=== PATIENT | male | born 1955 | race Caucasian/White ===

== ENCOUNTER → 2020-04-14 11:15 | Outpatient (CLI) | payer MEDICARE ==
[2020-02-14 16:49] VITALS: BMI 28.0
[~2020-04-14 11:15] MED LIST: ALDACTONE25 MG PO; AMIODARONE HCL200 MG PO; BAYER CHEWABLE81 MG PO; COZAAR50 MG; COZAAR50 MG PO; FISH OIL 1,0001 CA1 PO; FLUTICASONE PRO16 GM NASAL; FUROSEMIDE20 MG PO; LASIX20 MG PO; LOPRESSOR25 MG PO; LOSARTAN-HCTZ1 EAC1 PO; MUCINEX DM ER1 EAC1 PO; MULTI-DAY VITAM1 TAB PO; PLAVIX75 MG PO; SYMBICORT 16010.2 GM INH; TESSALON PERLE100 MG PO
--- NOTE | 2020-04-17 10:15 | EC ---
PATIENT:REECE WILHELM DATE OF SERVICE: 04/14/20 SEX: M MEDICAL RECORD: [id number] DATE OF : 51 LOCATION:[facility] AGE OF PATIENT: 64 ADMISSION DATE: 04/14/20 REFERRING PHYSICIAN: INTERPRETING PHYSICIAN: BONNIE JOHNSON MD ECHOCARDIOGRAM REPORT ECHO CHARGES 4 ECHO COMPLETE Date: 04/14/20 CLINICAL DIAGNOSIS: HX OF CARDIOMYOPATHY/CAD ASSESS EF/MR/TR ECHOCARDIOGRAPHIC MEASUREMENTS (adult normal given) AC root (d.<3.7cm) 3.5 cm LV Septum d (<1.2 cm> 1.3 cm Valve Excursion 0.9 cm LV Septum (systole) 1.7 cm Left Atria (s.<4.0cm> 4.4 cm LVPW d(<1.2cm) 1.4 cm RV (d.<2.3cm) 4.3 cm LVPW (sytole) 1.6 cm LV diastole(<5.6CM) 6.2 cm MV E-F(>70mm/sec) cm LV systole 4.6 cm LVOT Diameter 1.6 cm MV exc.(>10mm) 1.7 cm Est.ejection fraction (50-75%) % DOPPLER: LVIT cm/sec A 33.0 cm/sec E 130.0 cm/sec LA cm/sec RVSP 67 mmHg LVOT 158 cm/sec AOP1/2T m/s Asc. Ao 257 cm/sec RVOT 59 cm/sec RA cm/sec PA 89 cm/sec AV Gradient Peak 26.32mmHg AV Mean 15.24mmHg AV Area 1.3 cm MV Gradient Peak 11.89mmHg MV Mean 2.64 mmHg MV Area cm COMMENTS: Millinery Worker: 2 HOLLIE GUZMAN Rod Mill Tender: 3 Dr. Collazo TAPE# PACS Pericardial Effusion N DATE OF SERVICE: Adequate 2D, color flow imaging, spectral Doppler, and M-Mode. Mild LVH. LV internal dimensions are normal. LV is mildly globally hypo with EF lower limits of normal to mildly reduced 45-50%. Aortic valve calcified with restriction of leaflet motion. Peak gradient of 26 mmHg putting this in mild range. Mild AI by color flow imaging. Left atrium is mildly dilated at 4.4 cm. Mitral valve shows no prolapse. Moderate MR. Right-sided chambers are grossly normal. Moderate TR. ECHOCARDIOGRAM REPORT [id number] REECE WILHELM TRANSINT:[id number] Voice Confirmation ID: [id number] DOCUMENT ID: [id number] BONNIE JOHNSON MD at 1015 CC: [id number] DICTATION DATE: 04/14/20 1250 CERTIFIED MEDICAL AIDE: 04/14/201915 DEP CLI 04/14/20 [place] [address] [place] [id number]
== END | disposition home or self-care (01) ==
LOC: D.HCCECHO 11:15
PROVIDERS: ATTEND Internal Medicine Interventional Cardiology
DX: I10 Essential (primary) hypertension (principal)

== ENCOUNTER 2020-06-08 12:00 | Day surgery (SDC) | payer MEDICARE ==
[~2020-06-08] VITALS: Ht 177.8 cm; Wt 92.3 kg
--- NOTE | ~2020-06-08 | HEMODYNAMI ---
PATIENT:REECE WILHELM MEDICAL RECORD: [id number] : 51 LOCATION:[facility] ADMISSION DATE: 06/08/20 Generatedon:114:05 Patient name: REECE WILHELM Patient #: [id number] : 1955 Date of study: 06/08/2020 Page: Of Hemodynamic Procedure Report Patient Data Patient Demographics Procedure consent was obtained First Name: REECE Gender: Male Last Name: CHOCO : 1955 Patient #: [id number] Age: 64 year(s) Race: SSN: [id number] Additional ID: [id number] Contact details [address]: [address] [place] [address] State: [place] City: [place] Zip code: [address] Past Medical History History of disease Date Diagnosis Comments CAD Allergies: No known allergies Admission Admission Data Admission Date: 06/08/2020 Admission Time: 12:00 Arrival Date: 06/08/2020 Arrival Time: 14:00 Admit Source: Other Insurance Payor: Medicare [facility] #: [id number] Height (in.): 69.69 BSA: 2.09 (m2) Height (cm.): 177 BMI: 29.37 (kg/m2) Weight (lbs.): 202.83 Weight (kg.): 92 Lab Results Lab Result Date: 06/08/2020 Lab Result Time: 0:00 Biochemistry Name Units Result Min Max BUN mg/dl 23 --(----)-* 7 18 Creatinine mg/dl 1.4 --(----)*- 0.6 1.3 eGFR ml/min 54 *-(----)-- 90 120 NONAFRICAN CBC Name Units Result Min Max Hemoglobin g/dl 16.1 --(--*-)-- 13.5 17.5 Procedure Procedure Types Cath Procedure Diagnostic Procedure LHC LHC w/Coronaries Sedation Charges Moderate Sedation 10-24 minutes Procedure Description Procedure Date Procedure Date: 06/08/2020 Procedure Start Time: 13:43 Procedure End Time: 14:00 Procedure Staff Name Function Tom Acharya MD Performing Physician Marry Prabhakar RT Monitor Grecia Bradford RT Scrub Mitul Walton RN Nurse Basim Rose RN Nurse Procedure Data Cath Procedure Fluoroscopy Diagnostic fluoroscopy Total fluoroscopy Time: 3.1 time: 3.1 min min Diagnostic fluoroscopy Total fluoroscopy dose: 816 dose: 816 mGy mGy Contrast Material Contrast Material Type Amount (ml) Isovue 300 91 Entry Location Entry Primary Successful Side Size Upsize Upsize Entry Closure Succes sful Closure Location (Fr) 1 (Fr) 2 (Fr) Remarks Device Remarks Femoral Right 5 Fr Exoseal artery Estimated blood loss: 5 ml Diagnostic catheters Device Type Used For End Catheter Placement MULTIPACK JL 4.0 5Fr Left Coronary catheter Angiography DIAGNOSTIC JL 5 5Fr Left Coronary catheter ([id number]) Angiography MULTIPACK 3DRC 5Fr Right Coronary catheter Angiography MULTIPACK Pigtail 5 Fr LV Angiography catheter Procedure Complications No complications Procedure Medications Medication Administration Route Dosage 0.9% NaCl I.V. 100 ml/hr Heparin Flush Bag added to field 2 bags (1000units/500ml NS) Oxygen etCO2 Nasal cannula 2 l/min Lidocaine 2% added to field 20 Fentanyl I.V. 50 mcg Versed I.V. 1 mg Fentanyl I.V. 50 mcg Versed I.V. 1 mg Versed I.V. 1 mg Lasix I.V. 40 mg Hemodynamics Rest BSA: 2.09 (m2) HGB: 16.1 (g/dl) O2 Consumption: Estimated: 241.64 (ml/min) O2 Co nsumption indexed: Estimated:115.62 (ml/min/m) Heart Rate: 68 (bpm) Pressure Samples Time Site Value (mmHg) Purpose Heart Use Rate(bpm) 13:53 LV 103/60,63 Snapshot 81 13:53 LV 101/25,29 Snapshot 109 Gradients Valve Time Site Site Mean SEP/DFP Peak To Heart Use 1 2 (mmHg) (sec/min) Peak Rate (mmHg) (bpm) Aortic 13:54 LV AO 81 Snapshots Pre Cath Intra NCS Post Cath Vital Signs Time Heart Resp SPO2 etCO2 NIBP (mmHg) Rhythm Pain Sedation Rate (ipm) (%) (mmHg) Status Level (bpm) 13:22:24 59 24 96 23.9 122/81(105) NSR 0 (11) 10(A) , No pain 13:26:40 66 23 97 0 111/80(102) NSR 0 (11) 10(A) , No pain 13:30:51 60 23 91 0 134/119(125) NSR 0 (11) 10(A) , No pain 13:39:13 70 20 98 16.4 114/70(98) NSR 0 (11) 9(A) , No pain 13:43:29 67 16 94 0 105/64(92) NSR 0 (11) 9(A) , No pain 13:47:33 70 17 91 29.2 101/80(95) NSR 0 (11) 9(A) , No pain 13:51:45 64 17 92 26.2 106/66(90) NSR 0 (11) 9(A) , No pain 13:55:55 71 17 91 27.7 104/78(95) NSR 0 (11) 9(A) , No pain 14:00:03 68 17 92 28.4 93/69(85) NSR 0 (11) 9(A) , No pain Medications Time Medication Route Dose Verified Delivered Reason Notes Eff ectiveness by by 13:24:54 0.9% NaCl I.V. 100 Tom Basim used for ml/hr [facility] Ritchie Rose laundry worker 13:25:04 Heparin Flush added 2 Tom Tom used for Bag to bags [facility] procedure (1000units/500ml field MD HERNANDEZ NS) 13:25:16 Oxygen etCO2 2 Tom Basim used for Nasal l/min [facility] Ritchie Rose laundry worker cannula 13:25:31 Lidocaine 2% added 20ml Tom Tom for local to vial [facility] anesthetic field MD HERNANDEZ 13:33:36 Fentanyl I.V. 50 Tom Basim for mcg [facility] Ritchie Rose RN sedation 13:33:46 Versed I.V. 1 mg [address]im for [facility] Ritchie Rose RN sedation 13:40:22 Fentanyl I.V. 50 Tom Basim for mcg [facility] Ritchie Rose RN sedation 13:40:29 Versed I.V. 1 mg [address]im for [facility] Ritchie Rose RN sedation 13:53:33 Versed I.V. 1 mg [address] for [facility] Ritchie Rose RN sedation 13:59:14 Lasix I.V. 40 mg Tom Caball[address]oy Per [facility] Ritchie Rose RN physician Procedure Log Time Note 12:42:45 Informed consent obtained and on chart 12:44:08 Admit Source: Other 12:44:13 Arrival Date: 06/08/2020 2:00:00 PM 12:45:08 Insurance Payor : Medicare 12:51:21 Patient Height : 69.69 inches 12:51:25 Patient Weight : 202.83 lbs 12:51:48 Diagnostic Cath Status : Elective 13:01:06 Lab Result : BUN 23 mg/dl 13:01:06 Lab Result : Hemoglobin 16.1 g/dl 13:01:06 Lab Result : eGFR NONAFRICAN 54 ml/min 13:01:06 Lab Result : Creatinine 1.4 mg/dl 13:01:23 Procedure Status Elective Heart Cath (OP). 13:01:26 Mitul Walton RN sent for patient. Start room use. 13:01:27 Time tracking: Regular hours (M-F 7:00 - 5:00) 13:01:33 Plan of Care:Hemodynamics will remain stable., Cardiac rhythm will remain stable., Comfort level will be maintained., Respiratory function will remain adequate., Patient/ family verbilizes understanding of procedure., Procedure tolerated without complication., Recovers from procedure without complications.. 13:21:14 Patient received from Pre/Post Procedure Room to CCL 1 Alert and oriented. Tansferred to table in Supine position. 13:21:15 Warm blankets applied, and torri hugger turned on for patient comfort. 13:21:16 Correct patient and procedure confirmed by team. 13:21:16 ECG and BP/O2 sat monitors applied to patient. 13:21:17 Baseline sample Acquired. 13:21:17 Vital chart was started 13:21:21 Rhythm: sinus rhythm 13:21:24 Full Disclosure recording started 13:21:31 H&P Date Dictated: 06/08/2020 Within 30 days and on chart., H&P Addendum completed by physician on day of procedure. (MUST COMPLETE FOR ALL OUTPATIENTS). 13:21:33 Pre-procedure instructions explained to patient. 13:21:34 Pre-op teaching completed and patient verbalized understanding. 13:21:45 Family in patients room. 13:21:47 Patient NPO since Midnight. 13:21:50 Is the patient allergic to Iodine/contrast media? No. 13:21:51 Was the patient premedicated? Yes 13:21:52 Is patient on blood thinner?Yes 13:21:55 ACC The patient was administered the following blood thiners within the last 24 hours: ACCPlavix 13:21:59 Patient diabetic? No. 13:22:02 Previous problem with sedation/anesthesia? No ? 13:22:04 Snore? Yes 13:22:05 Sleep apnea? No 13:22:06 Deviated septum? No 13:22:06 Opens mouth fully? Yes 13:22:09 Sticks out tongue? Yes 13:22:14 Airway obstruction? No ? 13:22:18 Dentures? No ? 13:22:22 Pre procedure: right dorsailis pedis pulse 2+ Normal; easily identifiable; not easily obliterated 13:22:24 Pre procedure: left dorsailis pedis pulse 2+ Normal; easily identifiable; not easily obliterated 13:22:27 Patient pain scale 0/10 ?. 13:22:36 IV patent on arrival in left forearm with 0.9% NaCl at [facility]. 13:22:39 Lab results completed and on chart. 13:22:46 Right groin area was prepped with chlora-prep and draped in sterile fashion 13:22:47 Alarms reviewed by R. N. 13:22:47 Sharps counted by scrub and verified by R.N. 13:24:54 0.9% NaCl 100 ml/hr I.V. was administered by Basim Rose RN; used for procedure; Verbal order read back and verified. 13:25:04 Heparin Flush Bag (1000units/500ml NS) 2 bags added to field was administered by Tom Acharya MD; used for procedure; Verbal order read back and verified. 13:25:16 Oxygen 2 l/min etCO2 Nasal cannula was administered by Basim Rose RN; used for procedure; Verbal order read back and verified. 13:25:31 Lidocaine 2% 20ml vial added to field was administered by Tom Acharya MD; for local anesthetic; Verbal order read back and verified. 13:25:44 3a) 45-59 Moderately reduced kidney function. 13:33:21 Physician arrived 13:33:22 --------ALL STOP TIME OUT------ 13:33:22 Final Timeout: patient, procedure, and site verified with staff and physician. All members of the team are in agreement. 13:33:24 Right groin site verified by team. 13:33:27 Fire Safety Assessment: A--An alcohol-based skin anteseptic being used preoperatively., C--Open oxygen or nitrous oxide is being used., D--An ESU, laser, or fiber-optic light is being used. 13:33:32 Physical assessment completed. ASA score P 2 - A patient with mild systemic disease as per Tom Acharya MD. 13:33:36 Fentanyl 50 mcg I.V. was administered by Basim Rose RN; for sedation; Verbal order read back and verified. 13:33:36 Maximum allowable contrast dose (3.7 X eGFR X 0.75)150 ml. 13:33:41 Sedation plan: IV Moderate Sedation Medication:Versed, Fentanyl 13:33:46 Versed 1 mg I.V. was administered by Basim Rose RN; for sedation; Verbal order read back and verified. 13:33:46 Use device set Femoral Dx 13:33:47 ACIST Syringe (87109) opened to sterile field. 13:33:47 Bag Decanter (2002S) opened to sterile field. 13:33:47 Medline Cath Pack ([id number]) opened to sterile field. 13:33:48 ACIST Hand Control (54696) opened to sterile field. 13:33:49 ACIST Manifold (35270) opened to sterile field. 13:33:49 DIAGNOSTIC Multipack 5Fr catheter set (QK0629) opened to sterile field. 13:33:50 Tegaderm 4 x 4 (1626W) opened to sterile field. 13:33:51 SHEATH 5FR Leivasy (DPT783) opened to sterile field. 13:33:52 EMERALD Guide Wire (340-847) opened to sterile field. 13:40:22 Fentanyl 50 mcg I.V. was administered by Basim Rose RN; for sedation; Verbal order read back and verified. 13:40:29 Versed 1 mg I.V. was administered by Basim Rose RN; for sedation; Verbal order read back and verified. 13:43:46 Procedure started. 13:43:50 Local anesthetic to right femoral artery with Lidocaine 2% by Tom Acharya MD.INITIAL ACCESS ONLY 13:43:59 A 5 Fr sheath was inserted into the Right Femoral artery 13:44:43 A MULTIPACK JL 4.0 5Fr catheter was advanced over the wire and used for Left Coronary Angiography. 13:45:40 LCA angiography performed. 13:45:43 Injector settings: Ml/sec: 3, Volume: 6, 13:47:22 Catheter removed. 13:47:38 A DIAGNOSTIC JL 5 5Fr catheter ([id number]) was advanced over the wire and used for Left Coronary Angiography. 13:47:41 LCA angiography performed. 13:47:44 Injector settings: Ml/sec: 3, Volume: 6, 13:50:30 Catheter removed. 13:51:10 A MULTIPACK 3DRC 5Fr catheter was advanced over the wire and used for Right Coronary Angiography. 13:52:07 RCA angiography performed. 13:52:18 Injector settings: Ml/sec: 3, Volume: 6, 13:52:31 Catheter removed. 13:52:36 A MULTIPACK Pigtail 5 Fr catheter was advanced over the wire and used for LV Angiography. 13:53:33 Versed 1 mg I.V. was administered by Basim Rose RN; for sedation; Verbal order read back and verified. 13:54:25 LV hemodynamics recorded. 13:54:26 LV gram done using GUPTA 13:54:28 Injector settings: Ml/sec: 5, Volume: 15, 13:54:42 EF : 15 % 13:55:11 Catheter removed. 13:56:40 EXOSEAL 5Fr (EX500) opened to sterile field. 13:57:21 Sheath removed intact; hemostasis achieved with Exoseal to the Right Femoral artery. 13:57:23 Procedure ended.(Physican Out) 13:57:41 Fluoroscopy time 03.10 minutes. 13:57:45 Flurop Dose total: 816 13:57:45 Fluoroscopy dose: 816 mGy 13:57:52 Dose Area Product 31410 mGy/cm. 13:57:56 Contrast amount:Isovue 300 91ml. 13:57:58 Maximum allowable dose exceeded? No. 13:57:59 Sharps counted by scrub and verified by R.N. 13:58:42 Insertion/operative site no bleeding no hematoma. 13:58:46 Post-op/insertion site Right Femoral artery dressed using a 4 x 4 and Tegaderm. 13:58:47 Post Procedure Pulses reassessed and unchanged 13:58:50 Post procedure rhythm: unchanged. 13:58:58 Estimated blood loss: 5 ml 13:59:00 Post procedure instruction explained to patient.Patient verbalizes understanding. 13:59:00 Patient needs reinforcement of post procedure teaching. 13:59:14 Lasix 40 mg I.V. was administered by Basim Rose RN; Per physician; Verbal order read back and verified. 13:59:36 Procedure type changed to Cath procedure, Diagnostic procedure, LHC, [facility] w/Coronaries, Sedation Charges, Moderate Sedation 10-24 minutes 13:59:37 Procedure and supply charges have been captured, reviewed, submitted and are correct. 13:59:55 Procedure Complication : No complications 13:59:57 Vital chart was stopped 14:00:02 [facility] Findings: MVD- MD will discuss options w/ pt 14:00:04 Operative report dictated upon procedure completion. 14:00:05 See physician's report for complete and final results. 14:00:07 Report given to Pre/Post Procedure Room. 14:00:10 Patient transfered to Pre/Post Procedure Room with Stretcher. 14:00:12 Procedure ended. 14:00:12 Full Disclosure recording stopped 14:00:16 End room use (Document Last) 14:02:29 End room use (Document Last) 14:02:45 End room use (Document Last) Device Usage Item Name Manufacture Quantity Catalog Hospital Part Current Minimal L ot# / Number Charge Number Stock Stock Serial# Code ACIST Acist 1 76796 563700 556620 716083 20 Syringe Medical (49629) Systems Inc Bag Microtek 1 592949 81635 349484 5 Decanter Medical Inc. () Medline Medline 1 [id number] 263726 65127 926402 5 Cath Pack ([id number]) ACIST Hand Acist 1 52127 205298 558291 759534 5 Control Medical (98903) Systems Inc ACIST Acist 1 18856 534847 073670 791311 5 Manifold Medical (33631) Systems Inc DIAGNOSTIC Cardinal 1 RO8826 943178 84673 864236 30 Multipack iCrumz 5Fr catheter set (LM2877) Tegaderm 4 3M 1 1626W 878946 416381 585957 5 x 4 (1626W) SHEATH 5FR Terumo 1 ZTQ600 784549 815050 871989 5 Leivasy (EOF498) EMERALD Cardinal 1 502-455 478900 153320 036047 5 Guide Wire Health (502-393) MULTIPACK Cardinal 1 606299 5 JL 4.0 5Fr Health catheter DIAGNOSTIC Cardinal 1 [id number] 934487 121663 612686 5 JL 5 5Fr Health catheter (925699O) MULTIPACK Cardinal 1 068739 5 3DRC 5Fr Health catheter MULTIPACK Cardinal 1 285376 5 Pigtail 5 Health Fr catheter EXOSEAL 5Fr Cardinal 1 EX500 165426 117331 120704 10 (EX500) Health Signature Audit [place] Stage Time Signature Unsigned Intra-Procedure 06/08/2020 Marry Prabhakar 2:02:29 PM RT(R) Intra-Procedure 06/08/2020 Mitul Walton RN 2:02:45 PM Intra-Procedure 06/08/2020 Tom Aragon 2:05:52 PM Ritchie HERNANDEZ [facility] [address] [place] [address]
[2020-06-08] MEDS ORDERED: REPATHA SY140 MG/1 M SC (12:17)
[2020-06-08] MEDS ORDERED: NEXLETOL180 MG PO (12:17)
[2020-06-08] MEDS ORDERED: SYNTHROID50 MCG PO (12:17)
[2020-06-08 12:35] VITALS: BP 119/87; Ht 177.8 cm; Wt 92.3 kg
[2020-06-08 12:49] LABS: BASOPHILS 0.1 % (0-2); EOSINOPHILS 0.4 % (0-7); HEMATOCRIT 48.3 % (42.0-54.0); HEMOGLOBIN 16.1 g/dL (13.5-17.5); IMMATURE GRANULOCYTES 0.1 % (0-5); LYMPHOCYTE ABS# 1.93 10x3/uL (1.32-3.57); LYMPHOCYTES 24.3 % (15-50); MCH 28.6 pg (26.0-34.0); MCHC 33.3 g/dL (31.0-37.0); MCV 85.8 fL (80.0-100.0); MEAN PLATELET VOLUME 11.4 fL (7.4-10.4); NEUTROPHIL ABS# 5.24 10x3/uL (1.78-5.38); NEUTROPHILS 66.1 % (40-80); PLATELET COUNT 236 10x3/uL (130-400); RBC 5.63 10x6/uL (4.20-6.10); RDW 16.8 % (11.5-14.5); WBC 7.9 10x3/uL (4.8-10.8)
[2020-06-08 12:55] LABS: ANION GAP 12.7 mmol/L (8-16); CALCIUM 9.4 mg/dL (8.5-10.1); CARBON DIOXIDE 24.7 mmol/L (21.0-32.0); CHOL - HDL RATIO 1.7 ratio (2.3-4.9); CREATININE - SERUM 1.4 mg/dL (0.6-1.3); LDL-HDL RATIO 0.3 ratio (1.5-3.5); POTASSIUM - SERUM 4.4 mmol/L (3.5-5.1)
--- NOTE | 2020-06-08 14:15 | NUR ---
PT ARRIVED BY STRETCHER. PLACED ON MONITORS. ASSESSMENT COMPLETED. PT'S SON AT BEDSIDE. DR. JOHNSON ROUNDED AND SPOKE WITH HIM REGARDING PLAN OF CARE. PT VERY SLEEPY. DOES AROUSE WITH STIMULI. LUNGS ARE CLEAR TO AUSCULTATION. PT IS SNORING LOUDLY WITH APNIC EPISODES OF 10-15 SECONDS. DOES WAKE HIMSELF AND THEN FALL BACK TO SLEEP. CALL LIGHT WITHIN REACH.
[2020-06-08] MEDS ORDERED: ENTRESTO 24 MG1 EACH PO (14:23)
--- NOTE | 2020-06-08 14:30 | NUR ---
PT RESTING COMFORTABLY. RIGHT GROIN DRESSING C/D/I. NO S/S OF HEMATOMA NOTED. CALL LIGHT WITHIN REACH. FAMILY AT BEDSIDE.
--- NOTE | 2020-06-08 15:00 | NUR ---
RIGHT GROIN DRESSING C/D/I. NO S/S OF HEMATOMA NOTED. RIGHT PEDAL PULSE PALPABLE. VSS AT THIS TIME. PT STILL SLEEPY. DOES AROUSE TO VOICE. HEAD OF BED INC TO 30 DEGREES. TOLERATED WELL. PT TOLERATED SIPS OF WATER. DENIES NAUSEA/PAIN. CALL LIGHT WITHIN REACH. FAMILY AT BEDSIDE. PT'S DAUGHTER RAFAELA CALLED AND GAVE ME THE PASS CODE. UPDATED HER ON PT'S STATUS AND PLAN OF CARE.
--- NOTE | 2020-06-08 15:30 | NUR ---
RIGHT GROIN DRESSING C/D/I. NO S/S OF HEMATOMA NOTED. PT RESTING COMFORTABLY. VSS AT THIS TIME. CALL LIGHT WITHIN REACH. FAMILY AT BEDSIDE.
--- NOTE | 2020-06-08 15:50 | NUR ---
PT MORE AWAKE AND ALERT. PT'S O2 SAT 94% ON ROOM AIR. SET UP WITH SANDWICH TRAY AND DRINK. DENIES NAUSEA. RIGHT GROIN DRESSING C/D/I. NO S/S OF HEMATOMA NOTED. RIGHT PEDAL PULSE PALPABLE. FAMILY AT BEDSIDE. CALL LIGHT WITHIN REACH.
--- NOTE | 2020-06-08 16:15 | NUR ---
DR PRATHER TO ROOM TO SEE PT AND SON
--- NOTE | 2020-06-08 16:25 | NUR ---
RIGHT GROIN DRESSING C/D/I. NO S/S OF HEMATOMA NOTED. RIGHT PEDAL PULSE PALPABLE. PIV D/C'D WITH CATH TIP INTACT. TOLERATED WELL. DISCUSSED DISCHARGE INSTRUCTIONS WITH PT AND PT'S FAMILY. THEY VOICED UNDERSTANDING. PT AMUBLATED TO RESTROOM. VOIDED WITHOUT DIFFICULTY. STEADY GAIT NOTED.
--- NOTE | 2020-06-08 16:30 | NUR ---
PT TAKEN OUT TO VEHICLE BY WHEELCHAIR. NO S/S OF DISTRESS NOTED. ALL BELONGINGS AND PAPERWORK IN HAND.
--- NOTE | 2020-06-09 11:09 | OP ---
PATIENT NAME: REECE WILHELM MEDICAL RECORD: [id number] :51 LOCATION:D.[facility] ADMISSION DATE: SURGEON: BONNIE JOHNSON MD DATE OF OPERATION: 06/08/2020 PROCEDURE: Left heart catheterization, selective coronary angiography, right femoral artery approach. CATHETERS: A 5-Italian sheath, 5/4 left and right Samm, 5/4 pig. The procedure was well tolerated. The patient was returned to the maldonado. Sheath removed. Adequate hemostasis was obtained. FINDINGS: Left ventriculography in 30-degree GUPTA view shows severe global hypokinesis with EF approximately 15%. LVEDP is elevated. CORONARY ANATOMY: Left main: Basically, this is a shotgun takeoff with minimal left main. LAD: Has severe diffuse in-stent restenosis as well as a tight stenosis in the proximal portion of this vessel. Circumflex: Circumflex after takeoff first OM has a tight stenosis of 80%. This is a left dominant system. Right coronary artery: Rudimentary and a subtotally occluded distally with bridging collaterals. IMPRESSION: Aggressive restenosis despite Impella backup and revascularization not much in the way of LV function improvement. QRS duration not long enough for 3 lead, may need LVAD for destination therapy. We will add Entresto. Consider evaluation in [place] for LVAD. TRANSINT:[id number] Voice Confirmation ID: [id number] DOCUMENT ID: [id number] BONNIE JOHNSON MD at 1109 CC: [id number] DICTATION DATE: 06/08/20 1415 COMPUTER NETWORK SPECIALIST: 06/08/20 1647 [facility] 06/08/20 [place] [id number] [place] [id number]
--- NOTE | 2020-06-09 11:09 | CN ---
PATIENT NAME:REECE WILHELM MEDICAL RECORD: [id number] : 51 LOCATION:D.CAT ADMIT DATE: ACCOUNT: [id number] CONSULTING PHYSICIAN: BONNIE JOHNSON MD REFERRING PHYSICIAN: BONNIE JOHNSON MD DATE OF CONSULTATION: 06/08/2020 HISTORY OF PRESENT ILLNESS: A 64-year-old gentleman with known history of coronary artery disease, status post intervention, ischemic cardiomyopathy, had marked improvement in his symptoms. He has no residual. The circumflex has been managed well medically. However, he has been having more breakthrough angina despite maximal medical therapy. Given his known residual disease, brought back for possible revascularization of the circumflex. PAST MEDICAL HISTORY: Includes; 1. History of hypertension. 2. Hyperlipidemia. 3. Cardiomyopathy, improved on therapy. PHYSICAL EXAMINATION: GENERAL: Pleasant, in no acute distress, appears improved from previous admission at time of Impella placement. NECK: No bruits noted. HEART: Regular. Questionable S3. LUNGS: Good air excursion. ABDOMEN: Soft and nontender. EXTREMITIES: Pulses 2+. No edema. IMPRESSION: Recurrent angina despite maximal medical therapy. PLAN: Angiography, intervention based on the above. TRANSINT:[id number] Voice Confirmation ID: [id number] DOCUMENT ID: [id number] BONNIE JOHNSON MD at 1109 CC: [id number] DICTATION DATE: 06/08/20 1304 ENERGY TRADING ANALYST: 06/08/[address] [facility] 06/08/20 [place] [address]
== END 2020-06-08 16:30 | disposition home or self-care (01) ==
LOC: D.CATH 12:00
PROVIDERS: ATTEND Internal Medicine Interventional Cardiology
DX: I25.119 Atherosclerotic heart disease of native coronary artery with unspecified angina pectoris (principal); I48.92 Unspecified atrial flutter; R06.00 Dyspnea, unspecified; I10 Essential (primary) hypertension; I42.9 Cardiomyopathy, unspecified